=== PATIENT | female | born 1930 | race Caucasian/White ===

== ENCOUNTER 2017-12-15 23:45 | Observation (INO) ==
--- NOTE | 2017-12-16 00:16 | Emergency Department Note ---
Disposition Clinical Impression: Difficulty walking, Gluteal pain Altered mental status Qualifiers: Altered mental status type: unspecified Qualified Code(s): R41.82 - Altered mental status, unspecified Laceration of forearm Qualifiers: Encounter type: initial encounter Laterality: left Qualified Code(s): S51.812A - Laceration without foreign body of left forearm, initial encounter Disposition: Admitted As Inpatient Condition: Good Time of Disposition: 02:57 General Adult HPI - General Chief complaint: ED General Medical Stated complaint: Left flank pain, left forearm skin tear Time Seen by Provider: 12/16/17 00:09 Source: patient, EMS Limitations: altered mental status, other Nursing Notes Reviewed: Yes Vital Signs Reviewed: Yes - History of Present Illness HPI Narrative: 87-year-old female arrives by squad with reported injuries from fall. Squad reports that he picked her up at her neighbor's house. They report patient had fallen. No family present on the scene and they had not talked with the neighbor. Squad does report that patient is hard of hearing. No reported loc or prolonged down time. Pain Scale: 0 - Related Data Previous Rx's Medication Instructions Recorded Ondansetron ODT [Zofran ODT] 4 mg SL Q6HR PRN #16 tab.rapdis 02/22/16 Allergies Allergy/AdvReac Type Severity Reaction Status Date / Time Sulfa (Sulfonamide Allergy Hives Verified 02/22/16 11:30 Antibiotics) Limitations: ROS unobtainable due to patients medical condition Past Medical History - Past Medical History Medical history: Reports: COPD, CVA, diabetes, hypertension, renal disease Psychiatric history: Reports: no psych history - Social History Smoking Status: Never smoker Smokeless Tobacco Status: No Alcohol use: Reports: none Drug use: Reports: none, unknown Physical Exam - General Limitations: altered mental status, other General appearance: alert, in no apparent distress - Expanded Head Exam Head exam physicial: Present: abrasion. Absent: hematoma, raccoon eyes, CSF rhinorrhea, CSF otorrhea - Eye Eye exam: Present: normal appearance, PERRL, EOMI. Absent: conjunctival injection, periorbital swelling, periorbital tenderness - ENT ENT exam: normal exam, normal oropharynx, TM's normal bilaterally, normal external ear exam - Neck Neck exam: Present: normal inspection, full ROM. Absent: tenderness, meningismus, lymphadenopathy - Chest Chest inspection: Present: normal inspection, symmetric chest wall rise - Respiratory Respiratory exam: Present: normal lung sounds bilaterally. Absent: respiratory distress - Cardiovascular Cardiovascular exam: Present: regular rate, normal rhythm - Abdominal Exam Abdominal exam: Present: soft, Non-Tender - Expanded Upper Extremity Exam Shoulder exam: Present: full ROM Arm exam: Present: ecchymosis Elbow exam: Present: full ROM Forearm/Wrist exam: Present: full ROM, tenderness, laceration (left forearm, skin tear approx 10cm). Absent: tenderness over anatomical snuff box Hand exam: Present: full ROM - Expanded Lower Extremity Exam Hip/Pelvis exam: Present: full ROM, tenderness (left) Upper leg exam: Present: full ROM, tenderness (left) Knee exam: Present: full ROM. Absent: tenderness Lower leg exam: Present: full ROM. Absent: tenderness Ankle exam: Present: full ROM. Absent: tenderness Neurovascular/Tendon exam: Present: normal capillary refill. Absent: pulse deficit Gait: not tested/not observed - Back Exam Back exam: Present: full ROM. Absent: tenderness, CVA tenderness (R), CVA tenderness (L) - Neurological Exam Neurological exam: Present: alert - Expanded Neurological Exam Patient oriented to: Present: person. Absent: place, time Speech: Present: fluid speech Motor strength - LUE: 4/5 Motor strength - RUE: 4/5 Motor strength - LLE: 4/5 Motor strength - RLE: 4/5 Coma Scale Eye Opening: Spontaneous Coma Scale Motor Response: Obeys Commands Coma Scale Verbal Response: Confused Coma Scale Total: 14 - Psychiatric Psychiatric exam: Present: normal affect, normal mood - Skin Skin exam: Present: warm, dry, intact, normal color. Absent: rash, cyanosis, diaphoresis Course Course Narrative: 87-year-old female who arrives via squad with reported injuries from a fall. Zhaogang reports that patient had fallen in her home, however they had picked her up at the neighbor's house. Patient describes falling in her home and attempting to go to her neighbor's house for help after the fall. She does mention that she felt dizzy. Patient was seen upon her arrival to her exam room. She is alert and in no acute distress, does not look toxic. However she is extremely hard of hearing. After attempts to increase the volume on her hearing aid and talking loudly she is able to respond to some questions, however she does not always answer appropriately. At this point I feel this may be related to her hearing impairment, however there is a possibility of altered mental status. Sandeep did not report any family members or neighbors that they had talked to. I did attempt to contact the patient's emergency contact one number was disconnected and the other listed as her son had no one there by his name. No answer at the phone lumber listed for patient's residence. Vitals are within normal limits. She is Complaining of left hip and left flank pain. She also has a noticeable skin tear on her left forearm. Two small <1cm abrasions on her left latter day that may be old or possibly derm lesions. They are not bleeding. No facial asymmetry or extremity weakness. Lungs clear. HRRRR. No abdominal discomfort. Pelvis stable. No LE rotations or shortening. Workup initiated. Imaging ordered. - Reevaluation(s) Reevaluation #1: Pt's labwork unremarkable. CT abdomen and pelvis does show a gluteal hematoma, otherwise imaging unremarkable. Discussed patient with Dr. Sr who also had face time with patient. Patient does provide responses to some questionings, however her responses do not pertain to any questions. Concern for hearing issues versus altered mental status. Patient also is unable to ambulate without assistance. We Do feel patient is safe for discharge since patient apparently lives alone with no family or friend support at this time. We will plan for admission. Time: 02:55 Reevaluation #2: Pt remains alert and in no distress. I've had several attempts to have discussions with patient. At times she seems to hear me fine, other times she continues to appear hard of hearing. However, while she consistently appears to respond to questions when I talk she often replies with confusing replies. There is no mention of dementia or AMS in the documentation I had access to from her medical records. She continues to demonstrate difficulty walking by herself. The skin tear on left forearm cleansed irrigated. No active bleeding. No evidence of foreign body or debris. I feel her skin is too thin for suture repair. I did approximate the wound margins and applied steri strips then dressed with Telfa and Coban. Pt discussed with and accepted by hospitalists Dr. Alexander Time: 04:05 Vital Signs Temperature 97.7 F 02/02/18 23:49 Pulse Rate 83 12/15/17 23:49 Respiratory Rate 17 12/15/17 23:49 Blood Pressure 158/83 12/15/17 23:49 O2 Sat by Pulse Oximetry 94 12/15/17 23:49 Temperature 97.7 F 12/15/17 23:49 Pulse Rate 81 12/16/17 02:52 Respiratory Rate 16 12/16/17 04:31 Blood Pressure 160/66 12/16/17 04:31 O2 Sat by Pulse Oximetry 97 12/16/17 02:52 Oxygen Delivery Oxygen Delivery Room Air Procedures - Laceration Laceration 1 Site: upper extremity Side (If applicable): left Size (cm): 10 Description: other (skin tear) Depth: simple, single layer Pre-repair: wound explored, irrigated extensively Skin layer closed with: other (steri strips) Medical Decision Making - [facility] Narrative Medical decision making narrative: Forearm X-Ray 12/16/17 00:10 IMPRESSION: No radiopaque foreign body. No acute bony abnormality. D/ / Jose Anderson MD / Jose Anderson MD Interpreting Provider: Jose Anderson MD Hip X-Ray 12/16/17 00:10 IMPRESSION: No evidence for fracture. D/ / Feliberto Escobar MD / Feliberto Escobar MD Interpreting Provider: Feliberto Escobar MD Cervical Spine CT 12/16/17 00:52 IMPRESSION: No acute abnormality of the cervical spine. Right thyroid lobe 1.2 cm low-density nodule. Recommendations below. RECOMMENDATIONS: Managing Incidental Thyroid Nodule Detected at CT or MRI or US 1. Further evaluation by thyroid Ultrasound recommended for these incidental nodules: Patient Age 18 years or less - Any nodule. Patient Age 19-34 years old - Nodule 1 cm in size or greater Patient Age 35 years or more - Nodule 1.5 cm in size or greater 2. Follow up thyroid ultrasound also recommend in these scenarios -Solitary nodule with high risk imaging features (locally invasive nodule or suspicious lymph nodes) -Any nodule in a heterogeneous enlarged thyroid gland 3. NO further imaging is recommended in the following scenarios -No f/u imaging is recommended for ITNs not meeting the above criteria. -No US or f/u recommended for ITNs without high risk features in pts. with limited life expectancy or significant co-morbidities, unless clinically warranted. Note: These recommendations do not apply to pts. w/ increased risk for thyroid cancer or pts. with symptomatic thyroid disease. Recommendations for f/u of Incidental Thyroid Nodules (ITN) found on CT, MR, NM and Extrathyroidal US are based upon the ACR white paper and Kuhn 3-tiered system for managing ITNs: J Am Berta Radiol. 2015 Dec;12(2): 143-50 D/ / Arturo Stephenson / Arturo Stephenson Interpreting Provider: Arturo Stephenson Head CT 12/16/17 00:52 IMPRESSION: No acute intracranial abnormality. Chronic small vessel ischemic disease D/ / Nish Pagan MD / Nish Pagan MD Interpreting Provider: Nish Pagan MD Chest CT 12/16/17 00:53 IMPRESSION: No acute traumatic abnormality. D/ / Feliberto Escobar MD / Feliberto Escobar MD Interpreting Provider: Feliberto Escobar MD Abdomen/Pelvis CT 12/16/17 01:27 IMPRESSION: Subcutaneous hematoma in the left gluteal region with no evidence for visceral injury. Diverticulosis without scan evidence for diverticulitis. Gas in the urinary bladder could indicate cystitis if there has not been recent catheterization. D/ / Feliberto Escobar MD / Feliberto Escobar MD Interpreting Provider: Feliberto Escobar MD Laboratory Tests 12/16/17 12/16/17 12/16/17 00:11 01:06 01:06 WBC RBC Hgb Hct MCV MCH MCHC RDW Plt Count MPV Immature Gran % Seg Neutrophils % Lymphocytes % Monocytes % Eosinophils % Basophils % Neutrophils # Lymphocytes # Monocytes # Eosinophils # Basophils # Immature Plt Fraction PT INR APTT Carboxyhemoglobin Sodium Potassium Chloride Carbon Dioxide BUN Creatinine Est GFR ( Amer) Est GFR (Non-Af Amer) BUN/Creatinine Ratio Glucose POC Glucose 159 H Calculated Osmolality Calcium Total Bilirubin Direct Bilirubin Indirect Bilirubin AST ALT Alkaline Phosphatase Ammonia 34 Creatine Kinase 52 Troponin I Serum Total Protein Albumin Globulin Albumin/Globulin Ratio Urine Color Urine Clarity Urine pH Ur Specific Drums Urine Protein Urine Glucose (UA) Urine Ketones Urine Blood Urine Nitrite Urine Bilirubin Urine Urobilinogen Ur Leukocyte Esterase Ur Culture Indicated? Urine Opiates Screen Ur Barbiturates Screen Ur Phencyclidine Scrn Ur Amphetamines Screen U Benzodiazepines Scrn Urine Cocaine Screen U Marijuana (THC) Screen Ethyl Alcohol 12/16/17 12/16/17 12/16/17 01:06 01:06 01:06 WBC 8.7 RBC 4.24 Hgb 12.0 Hct 37.7 MCV 88.9 MCH 28.3 MCHC 31.8 RDW 12.0 Plt Count 358 MPV 10.4 Immature Gran % 0.3 Seg Neutrophils % 60.2 Lymphocytes % 27.7 Monocytes % 8.3 Eosinophils % 3.0 Basophils % 0.5 Neutrophils # 5.2 Lymphocytes # 2.4 Monocytes # 0.7 Eosinophils # 0.3 Basophils # 0.0 Immature Plt Fraction 4.4 PT 10.4 INR 1.0 APTT 30.5 Carboxyhemoglobin 1.1 Sodium Potassium Chloride Carbon Dioxide BUN Creatinine Est GFR ( Amer) Est GFR (Non-Af Amer) BUN/Creatinine Ratio Glucose POC Glucose Calculated Osmolality Calcium Total Bilirubin Direct Bilirubin Indirect Bilirubin AST ALT Alkaline Phosphatase Ammonia Creatine Kinase Troponin I Serum Total Protein Albumin Globulin Albumin/Globulin Ratio Urine Color Urine Clarity Urine pH Ur Specific Drums Urine Protein Urine Glucose (UA) Urine Ketones Urine Blood Urine Nitrite Urine Bilirubin Urine Urobilinogen Ur Leukocyte Esterase Ur Culture Indicated? Urine Opiates Screen Ur Barbiturates Screen Ur Phencyclidine Scrn Ur Amphetamines Screen U Benzodiazepines Scrn Urine Cocaine Screen U Marijuana (THC) Screen Ethyl Alcohol 12/16/17 12/16/17 12/16/17 01:06 01:06 01:15 WBC RBC Hgb Hct MCV MCH MCHC RDW Plt Count MPV Immature Gran % Seg Neutrophils % Lymphocytes % Monocytes % Eosinophils % Basophils % Neutrophils # Lymphocytes # Monocytes # Eosinophils # Basophils # Immature Plt Fraction PT INR APTT Carboxyhemoglobin Sodium 138 Potassium 3.5 Chloride 100 Carbon Dioxide 30 H BUN 25 H Creatinine 1.19 Est GFR ( Amer) 52 L Est GFR (Non-Af Amer) 43 L BUN/Creatinine Ratio 21 Glucose 166 H POC Glucose Calculated Osmolality 294 Calcium 9.4 Total Bilirubin 0.4 Direct Bilirubin 0.1 Indirect Bilirubin 0.3 AST 15 ALT 11 Alkaline Phosphatase 62 Ammonia Creatine Kinase Troponin I < 0.03 Serum Total Protein 6.8 Albumin 3.9 Globulin 2.9 Albumin/Globulin Ratio 1.3 Urine Color Yellow Urine Clarity Clear Urine pH 7.0 Ur Specific Drums 1.014 Urine Protein Negative Urine Glucose (UA) Normal Urine Ketones Negative Urine Blood Negative Urine Nitrite Negative Urine Bilirubin Negative Urine Urobilinogen Normal Ur Leukocyte Esterase Negative Ur Culture Indicated? NO Urine Opiates Screen Ur Barbiturates Screen Ur Phencyclidine Scrn Ur Amphetamines Screen U Benzodiazepines Scrn Urine Cocaine Screen U Marijuana (THC) Screen Ethyl Alcohol < 10 12/16/17 01:15 WBC RBC Hgb Hct MCV MCH MCHC RDW Plt Count MPV Immature Gran % Seg Neutrophils % Lymphocytes % Monocytes % Eosinophils % Basophils % Neutrophils # Lymphocytes # Monocytes # Eosinophils # Basophils # Immature Plt Fraction PT INR APTT Carboxyhemoglobin Sodium Potassium Chloride Carbon Dioxide BUN Creatinine Est GFR ( Amer) Est GFR (Non-Af Amer) BUN/Creatinine Ratio Glucose POC Glucose Calculated Osmolality Calcium Total Bilirubin Direct Bilirubin Indirect Bilirubin AST ALT Alkaline Phosphatase Ammonia Creatine Kinase Troponin I Serum Total Protein Albumin Globulin Albumin/Globulin Ratio Urine Color Urine Clarity Urine pH Ur Specific Drums Urine Protein Urine Glucose (UA) Urine Ketones Urine Blood Urine Nitrite Urine Bilirubin Urine Urobilinogen Ur Leukocyte Esterase Ur Culture Indicated? Urine Opiates Screen Negative Ur Barbiturates Screen Negative Ur Phencyclidine Scrn Negative Ur Amphetamines Screen Negative U Benzodiazepines Scrn Negative Urine Cocaine Screen Negative U Marijuana (THC) Screen Negative Ethyl Alcohol - Lab Data Lab results reviewed: Yes I reviewed the patient's lab results. Result diagrams: 12/16/17 01:06 12/16/17 01:06 Lab Results 12/16/17 12/16/17 12/16/17 Range/Units 00:11 01:06 01:06 WBC (4.3-11.1) K/mcL RBC (3.82-4.97) M/mcL Hgb (11.5-15.4) g/dL Hct (35.3-44.9) % MCV (83.0-100.0) fL MCH (28.0-33.3) pg MCHC (31.6-35.5) g/dL RDW (11.5-14.5) % Plt Count (140-400) K/mcL MPV (9.4-12.4) fL Immature Gran % (0-4) % Seg Neutrophils % % Lymphocytes % % Monocytes % % Eosinophils % % Basophils % % Neutrophils # (1.6-8.9) K/mcL Lymphocytes # (0.6-4.6) K/mcL Monocytes # (0.0-1.3) K/mcL Eosinophils # (0.0-0.6) K/mcL Basophils # (0.0-0.2) K/mcL Immature Plt Fraction (1.1-6.1) % PT (9.4-12.1) Seconds INR APTT (26.0-36.0) Seconds Carboxyhemoglobin (0-5) % Sodium (136-145) mEq/L Potassium (3.5-5.1) mEq/L Chloride (98-107) mEq/L Carbon Dioxide (23-29) mEq/L BUN (8-23) mg/dL Creatinine (0.60-1.20) mg/dL Est GFR ( Amer) (> 60) Est GFR (Non-Af Amer) (> 60) BUN/Creatinine Ratio (6-26) Glucose (70-105) mg/dL POC Glucose 159 H (58-89) Calculated Osmolality (280-300) Calcium (8.6-10.3) mg/dL Total Bilirubin (0.3-1.0) mg/dL Direct Bilirubin (0.0-0.2) mg/dL Indirect Bilirubin (0.0-1.2) mg/dL AST (13-39) Units/L ALT (7-52) Units/L Alkaline Phosphatase (34-104) Units/L Ammonia 34 (16-53) mcmol/L Creatine Kinase 52 (30-223) Units/L Troponin I (< 0.04) ng/mL Serum Total Protein (6.4-8.9) g/dL Albumin (3.5-5.7) g/dL Globulin (2.4-3.5) g/dL Albumin/Globulin Ratio (1.1-2.2) Urine Color (Yellow) Urine Clarity (Clear) Urine pH (5.0-8.0) pH Units Ur Specific Drums (1.010-1.025) Urine Protein (Neg-Trace) mg/dL Urine Glucose (UA) (Normal) mg/dL Urine Ketones (Negative) mg/dL Urine Blood (Negative) Urine Nitrite (Negative) Urine Bilirubin (Negative) Urine Urobilinogen (Normal) mg/dL Ur Leukocyte Esterase (Negative) Ur Culture Indicated? (NO) Urine Opiates Screen (Xiucfv=033) ng/mL Ur Barbiturates Screen (Emodui=129) ng/mL Ur Phencyclidine Scrn (Cutoff=25) ng/mL Ur Amphetamines Screen (Zkbhmz=8786) ng/mL U Benzodiazepines Scrn (Bphjid=647) ng/mL Urine Cocaine Screen (Cutoff= 300) ng/mL U Marijuana (THC) Screen (Cutoff = 50) ng/mL Ethyl Alcohol (0-10) mg/dL 18 18 12/16/17 Range/Units 01:06 01:06 01:06 WBC 8.7 (4.3-11.1) K/mcL RBC 4.24 (3.82-4.97) M/mcL Hgb 12.0 (11.5-15.4) g/dL Hct 37.7 (35.3-44.9) % MCV 88.9 (83.0-100.0) fL MCH 28.3 (28.0-33.3) pg MCHC 31.8 (31.6-35.5) g/dL RDW 12.0 (11.5-14.5) % Plt Count 358 (140-400) K/mcL MPV 10.4 (9.4-12.4) fL Immature Gran % 0.3 (0-4) % Seg Neutrophils % 60.2 % Lymphocytes % 27.7 % Monocytes % 8.3 % Eosinophils % 3.0 % Basophils % 0.5 % Neutrophils # 5.2 (1.6-8.9) K/mcL Lymphocytes # 2.4 (0.6-4.6) K/mcL Monocytes # 0.7 (0.0-1.3) K/mcL Eosinophils # 0.3 (0.0-0.6) K/mcL Basophils # 0.0 (0.0-0.2) K/mcL Immature Plt Fraction 4.4 (1.1-6.1) % PT 10.4 (9.4-12.1) Seconds INR 1.0 APTT 30.5 (26.0-36.0) Seconds Carboxyhemoglobin 1.1 (0-5) % Sodium (136-145) mEq/L Potassium (3.5-5.1) mEq/L Chloride (98-107) mEq/L Carbon Dioxide (23-29) mEq/L BUN (8-23) mg/dL Creatinine (0.60-1.20) mg/dL Est GFR ( Amer) (> 60) Est GFR (Non-Af Amer) (> 60) BUN/Creatinine Ratio (6-26) Glucose (70-105) mg/dL POC Glucose (58-89) Calculated Osmolality (280-300) Calcium (8.6-10.3) mg/dL Total Bilirubin (0.3-1.0) mg/dL Direct Bilirubin (0.0-0.2) mg/dL Indirect Bilirubin (0.0-1.2) mg/dL AST (13-39) Units/L ALT (7-52) Units/L Alkaline Phosphatase (34-104) Units/L Ammonia (16-53) mcmol/L Creatine Kinase (30-223) Units/L Troponin I (< 0.04) ng/mL Serum Total Protein (6.4-8.9) g/dL Albumin (3.5-5.7) g/dL Globulin (2.4-3.5) g/dL Albumin/Globulin Ratio (1.1-2.2) Urine Color (Yellow) Urine Clarity (Clear) Urine pH (5.0-8.0) pH Units Ur Specific Drums (1.010-1.025) Urine Protein (Neg-Trace) mg/dL Urine Glucose (UA) (Normal) mg/dL Urine Ketones (Negative) mg/dL Urine Blood (Negative) Urine Nitrite (Negative) Urine Bilirubin (Negative) Urine Urobilinogen (Normal) mg/dL Ur Leukocyte Esterase (Negative) Ur Culture Indicated? (NO) Urine Opiates Screen (Ehxbtp=615) ng/mL Ur Barbiturates Screen (Uytmmk=011) ng/mL Ur Phencyclidine Scrn (Cutoff=25) ng/mL Ur Amphetamines Screen (Irwnvg=2416) ng/mL U Benzodiazepines Scrn (Bxdpga=490) ng/mL Urine Cocaine Screen (Cutoff= 300) ng/mL U Marijuana (THC) Screen (Cutoff = 50) ng/mL Ethyl Alcohol (0-10) mg/dL 12/16/17 12/16/17 12/16/17 Range/Units 01:06 01:06 01:15 WBC (4.3-11.1) K/mcL RBC (3.82-4.97) M/mcL Hgb (11.5-15.4) g/dL Hct (35.3-44.9) % MCV (83.0-100.0) fL MCH (28.0-33.3) pg MCHC (31.6-35.5) g/dL RDW (11.5-14.5) % Plt Count (140-400) K/mcL MPV (9.4-12.4) fL Immature Gran % (0-4) % Seg Neutrophils % % Lymphocytes % % Monocytes % % Eosinophils % % Basophils % % Neutrophils # (1.6-8.9) K/mcL Lymphocytes # (0.6-4.6) K/mcL Monocytes # (0.0-1.3) K/mcL Eosinophils # (0.0-0.6) K/mcL Basophils # (0.0-0.2) K/mcL Immature Plt Fraction (1.1-6.1) % PT (9.4-12.1) Seconds INR APTT (26.0-36.0) Seconds Carboxyhemoglobin (0-5) % Sodium 138 (136-145) mEq/L Potassium 3.5 (3.5-5.1) mEq/L Chloride 100 (98-107) mEq/L Carbon Dioxide 30 H (23-29) mEq/L BUN 25 H (8-23) mg/dL Creatinine 1.19 (0.60-1.20) mg/dL Est GFR ( Amer) 52 L (> 60) Est GFR (Non-Af Amer) 43 L (> 60) BUN/Creatinine Ratio 21 (6-26) Glucose 166 H (70-105) mg/dL POC Glucose (58-89) Calculated Osmolality 294 (280-300) Calcium 9.4 (8.6-10.3) mg/dL Total Bilirubin 0.4 (0.3-1.0) mg/dL Direct Bilirubin 0.1 (0.0-0.2) mg/dL Indirect Bilirubin 0.3 (0.0-1.2) mg/dL AST 15 (13-39) Units/L ALT 11 (7-52) Units/L Alkaline Phosphatase 62 (34-104) Units/L Ammonia (16-53) mcmol/L Creatine Kinase (30-223) Units/L Troponin I < 0.03 (< 0.04) ng/mL Serum Total Protein 6.8 (6.4-8.9) g/dL Albumin 3.9 (3.5-5.7) g/dL Globulin 2.9 (2.4-3.5) g/dL Albumin/Globulin Ratio 1.3 (1.1-2.2) Urine Color Yellow (Yellow) Urine Clarity Clear (Clear) Urine pH 7.0 (5.0-8.0) pH Units Ur Specific Drums 1.014 (1.010-1.025) Urine Protein Negative (Neg-Trace) mg/dL Urine Glucose (UA) Normal (Normal) mg/dL Urine Ketones Negative (Negative) mg/dL Urine Blood Negative (Negative) Urine Nitrite Negative (Negative) Urine Bilirubin Negative (Negative) Urine Urobilinogen Normal (Normal) mg/dL Ur Leukocyte Esterase Negative (Negative) Ur Culture Indicated? NO (NO) Urine Opiates Screen (Myaxli=326) ng/mL Ur Barbiturates Screen (Efsvno=401) ng/mL Ur Phencyclidine Scrn (Cutoff=25) ng/mL Ur Amphetamines Screen (Eqejfs=5702) ng/mL U Benzodiazepines Scrn (Xibzlq=556) ng/mL Urine Cocaine Screen (Cutoff= 300) ng/mL U Marijuana (THC) Screen (Cutoff = 50) ng/mL Ethyl Alcohol < 10 (0-10) mg/dL 12/16/17 Range/Units 01:15 WBC (4.3-11.1) K/mcL RBC (3.82-4.97) M/mcL Hgb (11.5-15.4) g/dL Hct (35.3-44.9) % MCV (83.0-100.0) fL MCH (28.0-33.3) pg MCHC (31.6-35.5) g/dL RDW (11.5-14.5) % Plt Count (140-400) K/mcL MPV (9.4-12.4) fL Immature Gran % (0-4) % Seg Neutrophils % % Lymphocytes % % Monocytes % % Eosinophils % % Basophils % % Neutrophils # (1.6-8.9) K/mcL Lymphocytes # (0.6-4.6) K/mcL Monocytes # (0.0-1.3) K/mcL Eosinophils # (0.0-0.6) K/mcL Basophils # (0.0-0.2) K/mcL Immature Plt Fraction (1.1-6.1) % PT (9.4-12.1) Seconds INR APTT (26.0-36.0) Seconds Carboxyhemoglobin (0-5) % Sodium (136-145) mEq/L Potassium (3.5-5.1) mEq/L Chloride (98-107) mEq/L Carbon Dioxide (23-29) mEq/L BUN (8-23) mg/dL Creatinine (0.60-1.20) mg/dL Est GFR ( Amer) (> 60) Est GFR (Non-Af Amer) (> 60) BUN/Creatinine Ratio (6-26) Glucose (70-105) mg/dL POC Glucose (58-89) Calculated Osmolality (280-300) Calcium (8.6-10.3) mg/dL Total Bilirubin (0.3-1.0) mg/dL Direct Bilirubin (0.0-0.2) mg/dL Indirect Bilirubin (0.0-1.2) mg/dL AST (13-39) Units/L ALT (7-52) Units/L Alkaline Phosphatase (34-104) Units/L Ammonia (16-53) mcmol/L Creatine Kinase (30-223) Units/L Troponin I (< 0.04) ng/mL Serum Total Protein (6.4-8.9) g/dL Albumin (3.5-5.7) g/dL Globulin (2.4-3.5) g/dL Albumin/Globulin Ratio (1.1-2.2) Urine Color (Yellow) Urine Clarity (Clear) Urine pH (5.0-8.0) pH Units Ur Specific Drums (1.010-1.025) Urine Protein (Neg-Trace) mg/dL Urine Glucose (UA) (Normal) mg/dL Urine Ketones (Negative) mg/dL Urine Blood (Negative) Urine Nitrite (Negative) Urine Bilirubin (Negative) Urine Urobilinogen (Normal) mg/dL Ur Leukocyte Esterase (Negative) Ur Culture Indicated? (NO) Urine Opiates Screen Negative (Tdxqcf=885) ng/mL Ur Barbiturates Screen Negative (Xbgowo=811) ng/mL Ur Phencyclidine Scrn Negative (Cutoff=25) ng/mL Ur Amphetamines Screen Negative (Qfhszq=3446) ng/mL U Benzodiazepines Scrn Negative (Qpcusr=895) ng/mL Urine Cocaine Screen Negative (Cutoff= 300) ng/mL U Marijuana (THC) Screen Negative (Cutoff = 50) ng/mL Ethyl Alcohol (0-10) mg/dL - Radiology Data Radiology results reviewed: Yes I reviewed the patient's radiology results. Attestation Statement - Attestation Attestation: I, Tyshawn Sr MD, personally evaluated this patient and discussed their management with the midlevel provicer, [employer]. I reviewed the midlevel provider 's note and agree with the documented findings, medical decision making, and plan of care. 87-year-old female presented to the emergency department by EMS after she had a fall at home. Patient apparently lives at home alone. She apparently had a fall and complained of some left lower back and hip pain. She tried to walk to a neighbor's house and apparently had another fall. EMS was called and picked her up with a neighbor's house. Here the patient is totally confused and disoriented. Unable to determine if this is partially due to her hearing loss. Patient is really unable to answer any questions or provide any significant history or review of systems. The nurse did help her to ambulate to the bathroom and reported that patient was extremely unsteady and unable to make it to the bathroom without assistance and not capable of going home alone. On examination patient is a thin elderly female in no acute distress. She is alert but confused and disoriented. There is no cyanosis or diaphoresis. No obvious head trauma. Neck is supple with no obvious tenderness. Breath sounds are equal bilaterally. Heart regular rate and rhythm. Abdomen soft and nontender with normal bowel sounds. Some tenderness over the left lower back and left hip area. No gross focal neurological deficits noted. Labs reviewed. X-ray of the left hip and forearm was negative. CT of the head showed no acute intracranial abnormality. CT of the cervical spine showed no acute fracture. CT of the chest abdomen and pelvis showed a subcutaneous hematoma in the left gluteal region, otherwise no acute abnormalities. The hospitalist, Dr. Alexander, was consulted and accepted admission of the patient.
[2017-12-16 01:17] LABS: Basophils % 0.5 %; Eosinophils # 0.3 K/mcL (0.0-0.6); Hematocrit 37.7 % (35.3-44.9); Immature Granulocytes % 0.3 % (0-4); Immature Platelets 4.4 % (1.1-6.1); Lymphocytes # 2.4 K/mcL (0.6-4.6); Lymphocytes % 27.7 %; Mean Corpuscular HGB Conc 31.8 g/dL (31.6-35.5); Mean Corpuscular Hemoglobin 28.3 pg (28.0-33.3); Mean Corpuscular Volume 88.9 fL (83.0-100.0); Mean Platelet Volume 10.4 fL (9.4-12.4); Monocytes # 0.7 K/mcL (0.0-1.3); Monocytes % 8.3 %; Neutrophils # 5.2 K/mcL (1.6-8.9); Platelet Count 358 K/mcL (140-400); Red Blood Count 4.24 M/mcL (3.82-4.97); Segmented Neutrophils % 60.2 %
[2017-12-16 01:24] LABS: Bilirubin,Urine Negative (Negative); Blood,Urine Negative (Negative); Clarity,Urine Clear (Clear); Color,Urine Yellow (Yellow); Glucose,Urine (UA) Normal (Normal); Ketones,Urine Negative (Negative); Leukocyte Esterase,Urine Negative (Negative); Nitrite,Urine Negative (Negative); Protein,Urine Negative (Neg-Trace); Specific Gravity,Urine 1.014 (1.010-1.025); Urobilinogen,Urine Normal (Normal)
[2017-12-16 01:25] LABS: Prothrombin Time 10.4 Seconds (9.4-12.1)
[2017-12-16 01:27] LABS: Activated Partial Thrombo Time 30.5 Seconds (26.0-36.0)
[2017-12-16 01:31] LABS: Amphetamine Screen,Urine Negative ng/mL (Cutoff=1000); Barbiturate Screen,Urine Negative ng/mL (Cutoff=200); Benzodiazepines Screen,Urine Negative ng/mL (Cutoff=200); Cannabinoid Screen,Urine Negative ng/mL (Cutoff = 50); Cocaine Screen,Urine Negative ng/mL (Cutoff= 300); Opiate Screen,Urine Negative ng/mL (Cutoff=300); Phencyclidine Screen,Urine Negative ng/mL (Cutoff=25)
[2017-12-16 01:31] LABS: Ethanol < 10 mg/dL (0-10)
[2017-12-16 01:34] LABS: Alanine Aminotransferase 11 Units/L (7-52); Albumin 3.9 g/dL (3.5-5.7); Albumin/Globulin Ratio 1.3 (1.1-2.2); Alkaline Phosphatase 62 Units/L (34-104); Aspartate Amino Transferase 15 Units/L (13-39); BUN/Creatinine Ratio 21 (6-26); Bilirubin,Direct 0.1 mg/dL (0.0-0.2); Bilirubin,Indirect 0.3 mg/dL (0.0-1.2); Bilirubin,Total 0.4 mg/dL (0.3-1.0); Blood Urea Nitrogen 25 mg/dL (8-23); Calcium 9.4 mg/dL (8.6-10.3); Carbon Dioxide 30 mEq/L (23-29); Chloride 100 mEq/L (98-107); Globulin 2.9 g/dL (2.4-3.5); Glucose 166 mg/dL (70-105); Osmolality,Calculated 294 (280-300); Potassium 3.5 mEq/L (3.5-5.1); Sodium 138 mEq/L (136-145); Total Protein 6.8 g/dL (6.4-8.9); eGFR For African Americans 52 (> 60); eGFR For Non-African Americans 43 (> 60)
[2017-12-16] MEDS ORDERED: Tdap (Boostrix) Vaccine 0.5 ML SYRINGE IM ONE (02:05)
--- NOTE | 2017-12-16 10:44 | Internal Med History&Physical ---
Date of Encounter: 12/16/17 Time of Encounter: 10:41 Assessment and Plan (1) COPD (chronic obstructive pulmonary disease) Current visit: Yes Status: Chronic History of COPD no active wheezing Qualifiers: COPD type: emphysema Emphysema type: unspecified Qualified Code(s): J43.9 - Emphysema, unspecified (2) Diabetes 1.5, managed as type 2 Current visit: Yes Status: Chronic Chronic resume home medication and place on sliding scale (3) HTN (hypertension) Current visit: Yes Status: Chronic Chronic blood pressure well controlled Qualifiers: Hypertension type: essential hypertension Qualified Code(s): I10 - Essential (primary) hypertension (4) Hard of hearing Current visit: Yes Status: Chronic Patient very hard of hearing Qualifiers: Hearing loss type: unspecified Laterality: bilateral Qualified Code(s): H91.93 - Unspecified hearing loss, bilateral (5) Altered mental status Current visit: Yes Status: Chronic Patient very confused on clear about her baseline mental status ER and nurse unable to reach family members yet We will place social service consult for possible placement Qualifiers: Altered mental status type: disorientation Qualified Code(s): R41.0 - Disorientation, unspecified (6) Difficulty walking Current visit: Yes Status: Chronic Fall. Fall precaution (7) Gluteal pain Current visit: Yes Status: Acute Patient sustained left gluteal hematoma will observe and monitor Internal Medicine - H&P: HPI Chief complaint: fall Admitted From: Emergency Dept Plans for Post Hospital Care: Home History of present illness: Ms. Teran is a 87 year old female Patient with history of COPD, CVA, diabetes, hypertension, Ckd very hard of hearing. Patient apparently fell at [facility] house and EMS was called patient was then brought to the emergency room she is unable to give much history she is confused head CT was negative chest CT was negative abdominal CT showed left gluteal hematoma when I saw patient patient continued to say that she wants to go home and unable to answer much questions the nurses also report patient has been climbing out of bed and confused. No focal deficit patient will need a social service evaluation for possible placement ER and nurse so far unable to reach family members. Past Med Surg Social Fam HX - Past Medical History Medical history: COPD, CVA, diabetes, hypertension, renal disease Psychiatric history: no psych history - Social History Smoking Status: Never smoker Smokeless Tobacco Status: No Alcohol use: none Drug use: none, unknown Internal Medicine - H&P: Meds Ondansetron ODT [Zofran ODT] 4 mg SL Q6HR PRN #16 tab.rapdis 02/22/16 [Rx] 3 Allergy/AdvReac Type Severity Reaction Status Date / Time Sulfa (Sulfonamide Allergy Hives Verified 02/22/16 11:30 Antibiotics) ROS unobtainable: due to mental status All Systems PM: A 10-system review of systems was performed and is negative for pertinent findings except as documented above in the HPI. - Constitutional Vitals: Temp Pulse Resp BP Pulse Ox 98.1 F 77 14 129/76 94 12/16/17 07:25 12/16/17 07:25 12/16/17 07:25 12/16/17 07:25 12/16/17 07:43 - Eye Eye exam: Present: PERRL, conjuntiva pink, sclera anicteric Pupils: Present: PERRL - Respiratory Respiratory exam: Present: CTAB. Absent: accessory muscle use, rales, rhonchi, wheezes - Cardiovascular Cardiovascular exam: Present: RRR, +S1, +S2. Absent: diastolic murmur, gallop, rubs, systolic murmur - GI/Abdominal GI/Abdominal exam: Present: normal bowel sounds, soft, no peritoneal signs. Absent: distended, tenderness - Neurological Exam Neurological exam: Present: altered, no focal deficits. Absent: pronater drift , facial droop, speech deficit Internal Med - H&P Results - Labs CBC & Chem 7: 12/16/17 01:06 12/16/17 01:06
[2017-12-16] MEDS ORDERED: Naloxone 0.4 MG/ML INJ IVP PRN (10:49)
[2017-12-16] MEDS ORDERED: traMADol 50 MG TABLET PO PRN (10:49)
[2017-12-17 02:43] LABS: Hematocrit 34.6 % (35.3-44.9); Hemoglobin 11.4 g/dL (11.5-15.4); Mean Corpuscular HGB Conc 32.9 g/dL (31.6-35.5); Mean Corpuscular Hemoglobin 28.4 pg (28.0-33.3); Mean Corpuscular Volume 86.3 fL (83.0-100.0); Mean Platelet Volume 10.5 fL (9.4-12.4); Platelet Count 345 K/mcL (140-400); Red Blood Count 4.01 M/mcL (3.82-4.97)
[2017-12-17 03:15] LABS: Magnesium 1.9 mg/dL (1.6-2.6)
[2017-12-17] MEDS ORDERED: *HR* LORazepam 1 MG TABLET PO PRN (07:49)
--- NOTE | 2017-12-17 07:55 | Internal Med Progress Note ---
Date of Encounter: 12/17/17 Time of Encounter: 07:53 - Assessment and plan (1) Subcutaneous hematoma Current Visit: Yes Status: Acute Assessment and plan: Has a left gluteal hematoma that is subcutaneous. Hemoglobin stable. Pain is well controlled. Not exactly sure what the circumstances of this hematoma is and how it happened. For now she needs to be placed into nursing as her son wants that. There is no need for any surgical intervention. Continue pain control. (2) Dementia Current Visit: Yes Status: Acute Assessment and plan: The patient has what seems like end-stage dementia. She is alert and oriented 0. We will continue to monitor and provide supportive care. Qualifiers: Dementia type: Alzheimer's disease Alzheimer's disease onset: unspecified onset Dementia behavioral disturbance: without behavioral disturbance Qualified Code(s): G30.9 - Alzheimer's disease, unspecified; F02.80 - Dementia in other diseases classified elsewhere without behavioral disturbance; F02.80 - Dementia in other diseases classified elsewhere without behavioral disturbance; F02.80 - Dementia in other diseases classified elsewhere without behavioral disturbance (3) COPD (chronic obstructive pulmonary disease) Current Visit: Yes Status: Chronic Assessment and plan: Continue inhalers. Not in exacerbation. On room air. Qualifiers: COPD type: emphysema Emphysema type: unspecified Qualified Code(s): J43.9 - Emphysema, unspecified (4) HTN (hypertension) Current Visit: Yes Status: Chronic Assessment and plan: Continue hydrochlorothiazide. Blood pressure stable Qualifiers: Hypertension type: essential hypertension Qualified Code(s): I10 - Essential (primary) hypertension (5) DVT prophylaxis Current Visit: Yes Status: Acute Assessment and plan: Heparin subcutaneous - Subjective Interval history: Patient was seen and examined. Admitted yesterday with a fall from home. There was no fractures but there was a subcutaneous left gluteal hematoma. This morning she is not alert or oriented. I spoke to nursing staff and this is her baseline. Apparently she lives alone and gets 24-hour care for nursing agency. She has been afebrile and hemodynamically stable here. There has been no issues with the nursing staff. Her son is the POA and would like her to be placed. - Constitutional Vitals: Temp Pulse Resp BP Pulse Ox 98.6 F 80 15 163/74 97 12/17/17 06:49 12/17/17 06:49 12/17/17 06:49 02/04/18 06:49 12/17/17 07:20 Exam: GEN: NAD. Patient is confused. She is not alert and oriented at all. Not able to give any history. CVS: RRR. S1, S2, No m/r/g RESP: CTAB ABD: Soft, NT, ND, +BS EXT: No edema. 2+ DP. No rashes NEURO: Nonfocal Internal Medicine: Result - Labs CBC & Chem 7: 12/17/17 02:22 12/16/17 01:06 Labs: Short CBC 12/17/17 Range/Units 02:22 WBC 7.6 (4.3-11.1) K/mcL Hgb 11.4 L (11.5-15.4) g/dL Hct 34.6 L (35.3-44.9) % Plt Count 345 (140-400) K/mcL Cardiac Enzymes 12/16/17 12/16/17 12/16/17 Range/Units 11:29 17:02 22:46 Troponin I < 0.03 < 0.03 < 0.03 (< 0.04) ng/mL - ABG Interpretation ABG results: PT/INR, D-dimer PT 10.4 Seconds (9.4-12.1) 12/16/17 01:06 Consult Discharge Plan - Plan Referrals: NONE,PCP [Primary Care Provider] -
[2017-12-17] MEDS ORDERED: hydroCHLOROthiazide 25 MG TABLET PO SCH (09:00)
[2017-12-17] MEDS: (Donepezil Hcl [Donepezil Hcl] 23 MG) PO SCH (09:07)
[2017-12-17] MEDS: Acetaminophen 325 MG TABLET PO PRN ×2 (09:15→21:44)
[2017-12-17] MEDS: Tiotropium 18 MCG inhalation IH SCH (10:12)
[2017-12-17 11:37] LABS: Calcium 9.6 mg/dL (8.6-10.3); Potassium 3.7 mEq/L (3.5-5.1)
[2017-12-17] MEDS: *HR* Heparin 5,000 UNIT/ML VIAL SQ SCH ×2 (15:33→21:43)
[2017-12-18 05:24] LABS: Basophils % 0.5 %; Eosinophils # 0.1 K/mcL (0.0-0.6); Eosinophils % 1.6 %; Hematocrit 36.6 % (35.3-44.9); Hemoglobin 11.9 g/dL (11.5-15.4); Immature Granulocytes % 0.1 % (0-4); Lymphocytes # 2.9 K/mcL (0.6-4.6); Lymphocytes % 35.3 %; Mean Corpuscular HGB Conc 32.5 g/dL (31.6-35.5); Mean Corpuscular Hemoglobin 28.3 pg (28.0-33.3); Mean Corpuscular Volume 86.9 fL (83.0-100.0); Mean Platelet Volume 10.4 fL (9.4-12.4); Monocytes # 0.6 K/mcL (0.0-1.3); Monocytes % 7.2 %; Neutrophils # 4.5 K/mcL (1.6-8.9); Platelet Count 331 K/mcL (140-400); Red Blood Count 4.21 M/mcL (3.82-4.97); Red Cell Distribution Width 12.2 % (11.5-14.5); Segmented Neutrophils % 55.3 %
[2017-12-18] MEDS: *HR* Heparin 5,000 UNIT/ML VIAL SQ SCH ×3 (05:53→22:20)
[2017-12-18 06:15] LABS: Calcium 9.5 mg/dL (8.6-10.3); Potassium 3.4 mEq/L (3.5-5.1)
[2017-12-18] MEDS: (Donepezil Hcl [Donepezil Hcl] 23 MG) PO SCH (09:01)
[2017-12-18] MEDS: Tiotropium 18 MCG inhalation IH SCH (10:58)
--- NOTE | 2017-12-18 13:06 | Internal Med Progress Note ---
Date of Encounter: 12/18/17 Time of Encounter: 13:05 - Assessment and plan (1) Subcutaneous hematoma Current Visit: Yes Status: Acute Assessment and plan: Has a left gluteal hematoma that is subcutaneous. Hemoglobin stable. Pain is well controlled. Not exactly sure what the circumstances of this hematoma is and how it happened. For now she needs to be placed into nursing as her son wants that. This management is working on this. There is no need for any surgical intervention. Continue pain control. (2) Dementia Current Visit: Yes Status: Acute Assessment and plan: The patient has what seems like end-stage dementia. She is alert and oriented 0. We will continue to monitor and provide supportive care. Qualifiers: Dementia type: Alzheimer's disease Alzheimer's disease onset: unspecified onset Dementia behavioral disturbance: without behavioral disturbance Qualified Code(s): G30.9 - Alzheimer's disease, unspecified; F02.80 - Dementia in other diseases classified elsewhere without behavioral disturbance; F02.80 - Dementia in other diseases classified elsewhere without behavioral disturbance; F02.80 - Dementia in other diseases classified elsewhere without behavioral disturbance (3) COPD (chronic obstructive pulmonary disease) Current Visit: Yes Status: Chronic Assessment and plan: Continue inhalers. Not in exacerbation. On room air. Qualifiers: COPD type: emphysema Emphysema type: unspecified Qualified Code(s): J43.9 - Emphysema, unspecified (4) HTN (hypertension) Current Visit: Yes Status: Chronic Assessment and plan: Continue hydrochlorothiazide. Blood pressure stable Qualifiers: Hypertension type: essential hypertension Qualified Code(s): I10 - Essential (primary) hypertension (5) CKD (chronic kidney disease) stage 3, GFR 30-59 ml/min Current Visit: Yes Status: Acute Assessment and plan: Patient is at baseline. Continue to monitor. (6) DVT prophylaxis Current Visit: Yes Status: Acute Assessment and plan: Heparin subcutaneous - Subjective Interval history: Patient was seen and examined. No acute events. Afebrile. Has baseline severe dementia. Admitted with a fall from home. There was no fractures but there was a subcutaneous left gluteal hematoma. This morning she is not alert or oriented. I spoke to nursing staff and this is her baseline. Apparently she lives alone and gets 24-hour care for nursing agency. She has been afebrile and hemodynamically stable here. There has been no issues with the nursing staff. Her son is the POA and would like her to be placed. - Constitutional Vitals: Temp Pulse Resp BP Pulse Ox 97.9 F 85 16 132/75 93 12/18/17 11:26 12/18/17 11:26 12/18/17 11:26 12/18/17 11:26 12/18/17 11:26 Exam: GEN: NAD. Patient is confused. She is not alert and oriented at all. Not able to give any history. CVS: RRR. S1, S2, No m/r/g RESP: CTAB ABD: Soft, NT, ND, +BS EXT: No edema. 2+ DP. No rashes NEURO: Nonfocal Internal Medicine: Result - Labs CBC & Chem 7: 12/18/17 04:50 12/18/17 04:50 Labs: Short CBC 12/18/17 Range/Units 04:50 WBC 8.2 (4.3-11.1) K/mcL Hgb 11.9 (11.5-15.4) g/dL Hct 36.6 (35.3-44.9) % Plt Count 331 (140-400) K/mcL Neutrophils # 4.5 (1.6-8.9) K/mcL BMP 12/18/17 04:50 Sodium 137 Potassium 3.4 L Chloride 98 Carbon Dioxide 31 H BUN 25 H Creatinine 1.26 H Glucose 135 H Calcium 9.5 - ABG Interpretation ABG results: PT/INR, D-dimer PT 10.4 Seconds (9.4-12.1) 12/16/17 01:06 Consult Discharge Plan - Plan Referrals: NONE,PCP [Primary Care Provider] -
[2017-12-18] MEDS ORDERED: Potassium Chloride Elixir 20 MEQ/15 ML UDC PO ONE (15:04)
[2017-12-19] MEDS: *HR* Heparin 5,000 UNIT/ML VIAL SQ SCH ×3 (05:43→19:46)
[2017-12-19] MEDS: Tiotropium 18 MCG inhalation IH SCH (08:19)
[2017-12-19] MEDS: (Donepezil Hcl [Donepezil Hcl] 23 MG) PO SCH (08:49)
--- NOTE | 2017-12-19 13:56 | Internal Med Progress Note ---
Date of Encounter: 12/19/17 Time of Encounter: 13:55 - Assessment and plan (1) Subcutaneous hematoma Current Visit: Yes Status: Acute Assessment and plan: Has a left gluteal hematoma that is subcutaneous. Awaiting placement Hemoglobin stable. Pain is well controlled. Not exactly sure what the circumstances of this hematoma is and how it happened. For now she needs to be placed into nursing as her son wants that. s management is working on this. There is no need for any surgical intervention. Continue pain control. (2) Dementia Current Visit: Yes Status: Acute Assessment and plan: The patient has what seems like end-stage dementia. She is alert and oriented 0. We will continue to monitor and provide supportive care. Qualifiers: Dementia type: Alzheimer's disease Alzheimer's disease onset: unspecified onset Dementia behavioral disturbance: without behavioral disturbance Qualified Code(s): G30.9 - Alzheimer's disease, unspecified; F02.80 - Dementia in other diseases classified elsewhere without behavioral disturbance; F02.80 - Dementia in other diseases classified elsewhere without behavioral disturbance; F02.80 - Dementia in other diseases classified elsewhere without behavioral disturbance (3) COPD (chronic obstructive pulmonary disease) Current Visit: Yes Status: Chronic Assessment and plan: Continue inhalers. Not in exacerbation. On room air. Qualifiers: COPD type: emphysema Emphysema type: unspecified Qualified Code(s): J43.9 - Emphysema, unspecified (4) HTN (hypertension) Current Visit: Yes Status: Chronic Assessment and plan: Continue hydrochlorothiazide. Blood pressure stable Qualifiers: Hypertension type: essential hypertension Qualified Code(s): I10 - Essential (primary) hypertension (5) CKD (chronic kidney disease) stage 3, GFR 30-59 ml/min Current Visit: Yes Status: Acute Assessment and plan: Patient is at baseline. Continue to monitor. (6) DVT prophylaxis Current Visit: Yes Status: Acute Assessment and plan: Heparin subcutaneous - Subjective Interval history: Patient was seen and examined. No acute events. Afebrile. Has baseline severe dementia. Admitted with a fall from home. There was no fractures but there was a subcutaneous left gluteal hematoma. This morning she is not alert or oriented. I spoke to nursing staff and this is her baseline. Apparently she lives alone and gets 24-hour care for nursing agency. She has been afebrile and hemodynamically stable here. There has been no issues with the nursing staff. Her son is the POA and would like her to be placed. - Constitutional Vitals: Temp Pulse Resp BP Pulse Ox 97.8 F 68 16 132/68 96 12/19/17 11:58 12/19/17 11:58 12/19/17 11:58 12/19/17 11:58 12/19/17 11:58 Exam: GEN: NAD. Patient is confused. She is not alert and oriented at all. Not able to give any history. CVS: RRR. S1, S2, No m/r/g RESP: CTAB ABD: Soft, NT, ND, +BS EXT: No edema. 2+ DP. No rashes NEURO: Nonfocal Internal Medicine: Result - Labs CBC & Chem 7: 12/18/17 04:50 12/18/17 04:50 - ABG Interpretation ABG results: PT/INR, D-dimer PT 10.4 Seconds (9.4-12.1) 12/16/17 01:06 Consult Discharge Plan - Plan Referrals: NONE,PCP [Primary Care Provider] -
--- NOTE | 2017-12-19 19:15 | Electrocardiograph Report ---
[address] [place] [address] Test Date: 2017-12-16 Pat Name: Kristal Teran Department: 102 Room: [facility] Gender: F Project Lead: : 1930 Requested By: Casimiro Alexander Order Number: [id number] Reading MD: Jordan Solomon MD Measurements Intervals [place] Rate: 79 P: 47 [place]: 185 QRS: -52 QRSD: 137 T: 31 QT: 435 QTc: 469 Interpretive Statements SINUS RHYTHM RIGHT BUNDLE BRANCH BLOCK LEFT ANTERIOR FASCICULAR BLOCK Poor R wave progression Electronically Signed On 12-19-2017 19:14:03 EST by Jordan Solomon MD
[2017-12-20 06:32] LABS: Basophils % 0.3 %; Eosinophils # 0.1 K/mcL (0.0-0.6); Eosinophils % 0.4 %; Hematocrit 36.2 % (35.3-44.9); Hemoglobin 11.9 g/dL (11.5-15.4); Immature Granulocytes % 0.5 % (0-4); Lymphocytes # 1.2 K/mcL (0.6-4.6); Lymphocytes % 8.6 %; Mean Corpuscular HGB Conc 32.9 g/dL (31.6-35.5); Mean Corpuscular Hemoglobin 28.5 pg (28.0-33.3); Mean Corpuscular Volume 86.8 fL (83.0-100.0); Mean Platelet Volume 10.3 fL (9.4-12.4); Monocytes # 0.9 K/mcL (0.0-1.3); Monocytes % 6.2 %; Neutrophils # 11.5 K/mcL (1.6-8.9); Platelet Count 324 K/mcL (140-400); Red Blood Count 4.17 M/mcL (3.82-4.97); Red Cell Distribution Width 12.2 % (11.5-14.5)
[2017-12-20 07:07] LABS: Calcium 9.7 mg/dL (8.6-10.3); Potassium 3.8 mEq/L (3.5-5.1)
[2017-12-20] MEDS: Tiotropium 18 MCG inhalation IH SCH (08:37)
[2017-12-20] MEDS: (Donepezil Hcl [Donepezil Hcl] 23 MG) PO SCH (09:45)
[2017-12-20 11:34] VITALS: BP 133/70
--- NOTE | 2017-12-20 13:33 | Discharge Summary ---
Date of Encounter: 12/20/17 Time of Encounter: 13:31 - Discharge Diagnosis (1) Subcutaneous hematoma Priority: Primary Status: Acute (2) COPD (chronic obstructive pulmonary disease) Priority: Secondary Status: Chronic Qualifiers: COPD type: emphysema Emphysema type: unspecified Qualified Code(s): J43.9 - Emphysema, unspecified (3) HTN (hypertension) Priority: Secondary Status: Chronic Qualifiers: Hypertension type: essential hypertension Qualified Code(s): I10 - Essential (primary) hypertension (4) Dementia Priority: Secondary Status: Chronic Qualifiers: Dementia type: Alzheimer's disease Alzheimer's disease onset: late-onset Dementia behavioral disturbance: without behavioral disturbance Qualified Code (s): G30.1 - Alzheimer's disease with late onset; F02.80 - Dementia in other diseases classified elsewhere without behavioral disturbance; F02.80 - Dementia in other diseases classified elsewhere without behavioral disturbance; F02.80 - Dementia in other diseases classified elsewhere without behavioral disturbance (5) Diabetes mellitus Priority: Secondary Status: Chronic Qualifiers: Diabetes mellitus type: type 2 Diabetes mellitus complication status: with kidney complications Diabetes mellitus complication detail: with chronic kidney disease Diabetes mellitus predatory animal exterminator insulin use: without predatory animal exterminator use Chronic kidney disease stage: stage 3 (moderate) Qualified Code(s): E11.22 - Type 2 diabetes mellitus with diabetic chronic kidney disease; N18.3 - Chronic kidney disease, stage 3 (moderate); N18.3 - Chronic kidney disease, stage 3 (moderate) (6) CKD (chronic kidney disease) stage 3, GFR 30-59 ml/min Priority: Secondary Status: Chronic - Discharge Medications Home Medications: Aspirin Enteric Coated [Aspirin EC] 81 mg PO DAILY 12/16/17 [History] Donepezil HCl 23 mg PO DAILY 12/16/17 [History] Tiotropium [Spiriva] 18 mcg IH DAILY 12/16/17 [History] hydroCHLOROthiazide [Hydrochlorothiazide] 25 mg PO DAILY 12/16/17 [History] LORazepam [Ativan] 1 mg PO BID PRN 5 Days #10 12/20/17 [Rx] Allergies/Adverse Reactions: 3 Allergy/AdvReac Type Severity Reaction Status Date / Time Sulfa (Sulfonamide Allergy Hives Verified 02/22/16 11:30 Antibiotics) Date of admission: 12/16/17 04:17 Primary care physician: PCP NONE Consults: 12/16/17 10:51 Consult to Cutter Operator Helper [CONS] Routine Reason for SW Consult: discharge planning 12/16/17 15:33 PT [Consult to Physical Therapy] [CONS] Routine Comment: Evaluate, develop and implement POC Reason for Consult: eval for placement to ECF 12/16/17 15:34 OT [Consult to Occupational Therapy] [CONS] Routine Comment: Evaluate, develop and implement POC Reason for Consult: Eval for placement to ECF Discharging clinician: Andreina Hussein Anticipated date of discharge: 12/20/17 - Patient Status Disposition: Transfer SNF Condition: Good Functional capacity at discharge: uses cane/walker Overall status at discharge: patient is progressing back to baseline - Discharge Instructions Follow Up With: NONE,PCP [Primary Care Provider] - Additional Instructions: F/up with PCP in 1-2 weeks - Diet and Activity Activity: as per physical therapy Diet: diabetic diet, low fat, low cholesterol, low salt diet Hospital course: Ms. Teran is a 87 year old female with the above medical problems including advanced dementia, was initially brought into the emergency room after sustaining a fall. CT head and CT chest showed no acute injury/bleed. CT abdomen did show subcutaneous left gluteal hematoma. She received supportive care. She is not noted to be on any antiplatelets or anticoagulants. Initial labs showed no acute abnormality. Patient's mental status continued to be at baseline, confused and disoriented, unable to provide any history. According to previous hospitalist, patient's son desired ECF placement for the patient. I talked to patient's son Mr. Raimundo Rangel on the phone today and he is agreeable for the patient to be discharged to ECF. She is medically and hemodynamically stable. - Time Spent with Patient Total time spent providing and/or coordinating discharge services: Greater than 30 minutes (40 min) - Constitutional Vitals: Temp Pulse Resp BP Pulse Ox 98.1 F 80 16 133/70 93 12/20/17 11:31 12/20/17 11:31 12/20/17 11:31 12/20/17 11:31 12/20/17 11:31 General appearance: Present: A&O X 0 (disoriented, speaks and mumbles inappropriately). Absent: answers questions appropriately - Cardiovascular Cardiovascular exam: Present: RRR, +S1, +S2. Absent: diastolic murmur, gallop, rubs, systolic murmur
--- NOTE | 2017-12-20 13:38 | Physician Discharge Referral ---
ExtendedCare Referral Info Transfer To: [facility] Provider in Charge: Andreina Hussein Provider in Charge after Transfer: PCP Institutional Level of Care: Skilled - Diagnosis (1) Subcutaneous hematoma Priority: Primary Status: Acute (2) COPD (chronic obstructive pulmonary disease) Priority: Secondary Status: Chronic (3) HTN (hypertension) Priority: Secondary Status: Chronic (4) Dementia Priority: Secondary Status: Chronic (5) Diabetes mellitus Priority: Secondary Status: Chronic (6) CKD (chronic kidney disease) stage 3, GFR 30-59 ml/min Priority: Secondary Status: Chronic Expected Duration of Placement: 3 weeks Prognosis: Fair Aware of Diagnosis: Family Aware of Prognosis: Family - Transfer Medications Home Medications: Aspirin Enteric Coated [Aspirin EC] 81 mg PO DAILY 12/16/17 [History] Donepezil HCl 23 mg PO DAILY 12/16/17 [History] Tiotropium [Spiriva] 18 mcg IH DAILY 12/16/17 [History] hydroCHLOROthiazide [Hydrochlorothiazide] 25 mg PO DAILY 12/16/17 [History] LORazepam [Ativan] 1 mg PO BID PRN 5 Days #10 12/20/17 [Rx] Allergies/Adverse Reactions: 3 Allergy/AdvReac Type Severity Reaction Status Date / Time Sulfa (Sulfonamide Allergy Hives Verified 02/22/16 11:30 Antibiotics) - Respiratory Orders Smoking Cessation: Smoking cessation has been advised. For more information, call the [place] Tobacco Quit Line at 5-745-WRRANOW. - Advance Directives Power of Pharmacy Order Entry Technician: Yes (Son) Code Status: Full Code - Mobility Orders Ambulate - Rehabiliation Orders Rehab Potential: Fair Rehab Orders: ROM Exercises, Evaluation for Physical Therapy, Evaluation for Occupational Therapy - Diet Orders No Concentrated Sweets (diabetic), Cardiac CERTIFICATION: I certify that the transfer of the above named patient to an Extended Care Facility is necessary for the continuing treatment of the diagnosis listed. The above information is true and accurate reflection of patient's current condition. Confidential - Redisclosure prohibited without a patient's written consent.
[2017-12-20] MEDS: *HR* Heparin 5,000 UNIT/ML VIAL SQ SCH (14:47)
[2017-12-20] MEDS ORDERED: FLUARIX QUAD 2017-18 36MOS UP/PF 0.5 ML SYRINGE IM ONE (18:16)
== END 2017-12-20 19:05 ==
LOC: 3NENU 23:45 → EMEROO 23:45 → SUATTDRO 12-16 04:17 → 3NENU 12-16 04:30
PROVIDERS: ADMIT Internal Medicine; ATTEND Internal Medicine